=== PATIENT | female | born 1935 | race Caucasian/White ===

== ENCOUNTER → 2018-10-08 13:02 | Outpatient (CLI) | payer MEDICARE, MEDICAID, SELFPAY ==
--- NOTE | 2018-10-08 13:08 | RAD_ITS ---
STUDY: X-RAY - RIGHT SHOULDER REASON FOR EXAM: Female, 83 years old. Pain. TECHNIQUE: 4 view(s) of the shoulder. COMPARISON: None. 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 Normal acromioclavicular joint. Normal acromion. There is chondrocalcinosis. There is demineralization of the humerus and visualized osseous structures. There is periarticular soft tissue calcification consistent with a calcific tendinitis. There is no demonstrated fracture. Normal visualized pulmonary apex. RAD/Shoulder min 2 Views IMPRESSION: No fracture. No dislocation. Degenerative changes and calcific tendinitis. Electronically Signed: Bowen Chan MD at 0:01 EDT , Service support ,
== END ==
PROVIDERS: Family Provider Family Medicine; PCP Family Medicine; Referring Provider Orthopaedic Surgery; Visit Provider Orthopaedic Surgery
DX: M25.511 Pain in right shoulder (principal)
CPT/HCPCS: 73030

== ENCOUNTER → 2020-10-24 | Outpatient (CLI) | payer MEDICARE, MEDICAID, SELFPAY ==
[2018-10-08 13:03] VITALS: BMI 25.8
== END | disposition home or self-care (01) ==
PROVIDERS: PCP Family Medicine; Referring Provider Dermatology; Visit Provider Dermatology
DX: L02.412 Cutaneous abscess of left axilla (principal); L30.0 Nummular dermatitis; D04.9 Carcinoma in situ of skin, unspecified
CPT/HCPCS: 87070; 87077; 87186; 87205

== ENCOUNTER → 2021-01-06 | Outpatient (CLI) | payer OTHER, MEDICAID, SELFPAY ==
[2018-10-08 13:03] VITALS: BMI 25.8
== END | disposition home or self-care (01) ==
LOC: LABSPEC 10:31
PROVIDERS: PCP Family Medicine; Referring Provider Dermatology; Visit Provider Dermatology
DX: L08.9 Local infection of the skin and subcutaneous tissue, unspecified (principal)
CPT/HCPCS: 87070; 87077; 87186; 87205

== ENCOUNTER → 2021-01-26 | Outpatient (CLI) | payer OTHER, MEDICAID, SELFPAY ==
[2018-10-08 13:03] VITALS: BMI 25.8
== END | disposition home or self-care (01) ==
PROVIDERS: PCP Family Medicine; Referring Provider Dermatology; Visit Provider Dermatology
DX: L08.9 Local infection of the skin and subcutaneous tissue, unspecified (principal); B95.62 Methicillin resistant Staphylococcus aureus infection as the cause of diseases classified elsewhere
CPT/HCPCS: 87015; 87070; 87101; 87116; 87205; 87206